=== PATIENT | male | born 1990 | race Two or more races ===

== ENCOUNTER 2019-02-04 21:20 | Emergency (ER) | payer SELFPAY ==
[~2019-02-04] VITALS: Ht 167.6 cm; Wt 117.0 kg
[2019-02-05] MEDS ORDERED: IBUPROFEN 800MG TABLET PO ONE (01:45)
[2019-02-05 03:12] VITALS: BP 130/78
== END 2019-02-05 03:13 | disposition home or self-care (01) ==
LOC: ER 21:20
DX: S83.92XA Sprain of unspecified site of left knee, initial encounter (principal); F17.200 Nicotine dependence, unspecified, uncomplicated; X50.0XXA Overexertion from strenuous movement or load, initial encounter; Y93.89 Activity, other specified; Y92.89 Other specified places as the place of occurrence of the external cause
CPT/HCPCS: 73562; 99283